=== PATIENT | female | born 1935 | race Caucasian/White ===

== ENCOUNTER → 2017-07-15 | Outpatient (CLI) | payer OTHER | LOC: CIMAGING 09:12 | PROVIDERS: ATTEND Specialist | DX: N26.1 Atrophy of kidney (terminal) (principal); N13.30 Unspecified hydronephrosis; I70.0 Atherosclerosis of aorta; R59.9 Enlarged lymph nodes, unspecified; M51.36 Other intervertebral disc degeneration, lumbar region; M51.37 Other intervertebral disc degeneration, lumbosacral region; M46.96 Unspecified inflammatory spondylopathy, lumbar region | CPT/HCPCS: 74176-PO ==